=== PATIENT | male | born 1945 | race Caucasian/White ===

== ENCOUNTER 2020-07-08 12:53 | Emergency (ER) | payer BC, MEDICARE ==
[2020-07-08] MEDS ORDERED: Sodium Chloride 0.9% 10 ML Syringe FLUSH PRN (13:21)
--- NOTE | 2020-07-08 13:33 | EDM.PDOC ---
ED HPI GENERAL MEDICAL PROBLEM - General Chief Complaint: Back Pain or Injury Stated Complaint: KIDNEY PAIN SENT BY [facility] Time Seen by Provider: 07/08/20 13:10 Source of Information: Reports: Patient, RN Notes Reviewed History Limitations: Reports: No Limitations - History of Present Illness INITIAL COMMENTS - FREE TEXT/NARRATIVE: Patient is a 74-year-old male who presents to the ED for evaluation of his right lower back pain. Patient notes he is a type II diabetic, and has stage IV chronic kidney disease, he notes that his GFR is in the 30s. Review of labs sent over from [facility] do corroborate this along with a creatinine in the twos. His A1c on June 19, 2020 was 7.2, he was recently started on Ozempic 2 weeks ago. He notes that since yesterday, he has had some right lower back pain, seems to be exquisitely worse with movement, and dull at rest. He notes that nothing seems to make it much better he took some Tylenol and took some of the edge off, he states that his last dose of this was at around 11:30 AM. He has no trauma or recent injuries to the back. He has no urinary issues like hematuria, urgency dysuria. He notes that is very hard to get comfortable in any shape or fashion he did not get much sleep for the last 2 nights due to the pain. His area development consultant is Dr. Ventura, his PCP is Dr. Hans Salgado. He has no prior sick symptoms like fevers or chills, cough/nausea/vomiting/diarrhea. He notes that the pain does not radiate anywhere. Right Lower Back Pain Score (Numeric/FACES): 9 - Related Data Allergies Allergy/AdvReac Type Severity Reaction Status Date / Time No Known Allergies Allergy Verified 07/08/20 13:08 Home Meds: Home Meds Acetaminophen/HYDROcodone [[place] 325-5 MG] 1 tab PO Q6H PRN #12 tablet 07/08/20 [Rx] Allopurinol [Zyloprim] 300 mg PO DAILY 07/08/20 [History] Aspirin [Adult Low Dose Aspirin EC] 81 mg PO DAILY 07/08/20 [History] Cyanocobalamin (Vitamin B12) [Vitamin B12] 1,000 mcg PO DAILY 07/08/20 [History] Oxymetazoline HCl [12 Hour Nasal [place]] 1 spray [place] ASDIRECTED PRN 07/08/20 [History] Semaglutide [Ozempic] 1 injection SQ ASDIRECTED 07/08/20 [History] Simvastatin 40 mg PO DAILY 07/08/20 [History] Sodium Bicarbonate 325 mg PO DAILY 07/08/20 [History] Triamcinolone Acetonide [Kenalog 0.1% Crm] 1 applic TOP ASDIRECTED PRN 07/08/20 [History] diphenhydrAMINE [Benadryl] 25 mg PO ASDIRECTED PRN 07/08/20 [History] lisinopriL [Lisinopril] 20 mg PO DAILY 07/08/20 [History] metFORMIN [Glucophage] 500 mg PO BID 07/08/20 [History] Past Medical History HEENT History: Reports: Hard of Hearing, Other (See Below) Other HEENT History: hypertensive retinopathy R eye, retinal hemorrhage Cardiovascular History: Reports: CAD, High Cholesterol, Hypertension Respiratory History: Reports: Sleep Apnea, Other (See Below) Other Respiratory History: oxygen 2L with bipap at night Genitourinary History: Reports: Chronic Renal Insuffiency Musculoskeletal History: Reports: Osteoarthritis, Other (See Below) Other Musculoskeletal History: spinal stenosis Endocrine/Metabolic History: Reports: Diabetes, Type II, Hyperparathyroidism, Obesity/BMI 30+, Vitamin D Deficiency - Past Surgical History HEENT Surgical History: Reports: Adenoidectomy, Eye Surgery, Naso-Sinus Surgery, Tonsillectomy Cardiovascular Surgical History: Reports: Other (See Below) Other Cardiovascular Surgeries/Procedures: angiogram GI Surgical History: Reports: Appendectomy Musculoskeletal Surgical History: Reports: Carpal Tunnel, Knee Replacement, Other (See Below) Other Musculoskeletal Surgeries/Procedures:: X-spot procedure, hammer toe repair, foot surgery Social & Family History - Tobacco Use Tobacco Use Status *Q: Never Tobacco User Second Hand Smoke Exposure: No - Caffeine Use Caffeine Use: Reports: None - Recreational Drug Use Recreational Drug Use: No ED ROS GENERAL - Review of Systems Review Of Systems: Comprehensive ROS is negative, except as noted in HPI. ED EXAM,LOWER BACK PAIN/INJURY - Physical Exam Exam: See Below Exam Limited By: No Limitations General Appearance: Alert, WD/WN, No Apparent Distress Respiratory/Chest: No Respiratory Distress, Lungs Clear, Normal Breath Sounds, No Accessory Muscle Use, Chest Non-Tender Cardiovascular: Normal Peripheral Pulses, Regular Rate, Rhythm, No Edema GI/Abdominal: Normal Bowel Sounds, Soft, Non-Tender, No Distention, No Mass Extremities: Normal Inspection, Normal Capillary Refill Neurological: Alert, Normal Mood/Affect, Normal Dorsiflexion, Normal Plantar Flexion, No Motor/Sensory Deficits, Oriented x 3. No: Straight Leg Raise (L), Straight Leg Raise (R), Saddle Anesthesia Psychiatric: Normal Affect, Normal Mood Skin Exam: Warm, Dry, Intact, Normal Color, No Rash Course - Vital Signs Last Recorded V/S: Last Vital Signs Temp 97.5 F 07/08/20 13:03 Pulse 93 07/08/20 13:03 Resp 16 07/08/20 13:03 BP 140/91 H 07/08/20 13:03 Pulse Ox 99 07/08/20 13:03 - Orders/Labs/Meds Orders: Active Orders 24 hr Category Date Time Status Peripheral IV Care [RC] . DIRECTED Care 07/08/20 13:21 Ordered Sodium Chloride 0.9% [Saline Flush] Med 07/08/20 13:21 Ordered 10 ml FLUSH ASDIRECTED PRN Peripheral IV Insertion Adult [OM.PC] Routine Oth 07/08/20 13:21 Ordered Medication Orders Sodium Chloride (Saline Flush) 10 ml FLUSH ASDIRECTED PRN PRN Reason: Keep Vein Open Last Admin: 07/08/20 13:39 Dose: 10 ml Documented by: LUCIUS Labs: Laboratory Tests 07/08/20 07/08/20 07/08/20 Range/Units 13:05 13:05 13:35 WBC 8.56 (4.23-9.07) K/mm3 RBC 4.86 (4.63-6.08) M/mm3 Hgb 14.5 (13.7-17.5) gm/dl Hct 43.6 (40.1-51.0) % MCV 89.7 (79.0-92.2) fl MCH 29.8 (25.7-32.2) pg MCHC 33.3 (32.2-35.5) g/dl RDW Std Deviation 42.4 (35.1-43.9) fL Plt Count 195 (163-337) K/mm3 MPV 8.4 L (9.4-12.3) fl Neut % (Auto) 59.0 (34.0-67.9) % Lymph % (Auto) 29.7 (21.8-53.1) % Park % (Auto) 9.1 (5.3-12.2) % Eos % (Auto) 1.9 (0.8-7.0) Baso % (Auto) 0.1 (0.1-1.2) % Neut # (Auto) 5.05 (1.78-5.38) K/mm3 Lymph # (Auto) 2.54 (1.32-3.57) K/mm3 [place] # (Auto) 0.78 (0.30-0.82) K/mm3 Eos # (Auto) 0.16 (0.04-0.54) K/mm3 Baso # (Auto) 0.01 (0.01-0.08) K/mm3 Sodium 137 (136-145) mEq/L Potassium 4.3 (3.5-5.1) mEq/L Chloride 98 (98-107) mEq/L Carbon Dioxide 24 (21-32) mEq/L Anion Gap 19.3 H (5-15) BUN 37 H (7-18) mg/dL Creatinine 2.0 H (0.7-1.3) mg/dL Est Cr Clr Drug Dosing 29.84 mL/min Estimated GFR (MDRD) 33 (>60) mL/min BUN/Creatinine Ratio 18.5 H (14-18) Glucose 164 H (83-115) mg/dL Calcium 9.1 (8.5-10.1) mg/dL Total Bilirubin 0.5 (0.2-1.0) mg/dL AST 22 (15-37) U/L ALT 31 (16-63) U/L Alkaline Phosphatase 67 (46-116) U/L Total Protein 8.1 (6.4-8.2) g/dl Albumin 4.4 (3.4-5.0) g/dl Globulin 3.7 gm/dL Albumin/Globulin Ratio 1.2 (1-2) Urine Color Yellow (Yellow) Urine Appearance Clear (Clear) Urine pH 6.0 (5.0-8.0) Ur Specific [place] 1.015 (1.005-1.030) Urine Protein 1+ H (Negative) Urine Glucose (UA) Negative (Negative) Urine Ketones Negative (Negative) Urine Occult Blood Negative (Negative) Urine Nitrite Negative (Negative) Urine Bilirubin Negative (Negative) Urine Urobilinogen 0.2 (0.2-1.0) Ur Leukocyte Esterase Negative (Negative) Urine RBC 0-5 (0-5) /hpf Urine WBC 0-5 (0-5) /hpf Ur Squamous Epith Cells 0-5 (0-5) /hpf Urine Bacteria Few (FEW) /hpf Urine Mucus Rare (FEW) /hpf Meds: Medications Generic Name Dose Route Start Last Admin Trade Name Freq PRN Reason Stop Dose Admin Sodium Chloride 10 ml 07/08/20 13:21 07/08/20 13:39 Saline Flush FLUSH 10 ml ASDIRECTED PRN Administration Keep Vein Open - Re-Assessments/Exams Free Text/Narrative Re-Assessment/Exam: 07/08/20 13:32 Patient presents to the ED for the evaluation of his right lower back pain, he is unsure if it is related to his kidneys or musculoskeletal, due to his chronic kidney disease, we will get basic labs to include CBC, CMP, and a urinalysis along with an abdomen pelvis CT without contrast for evaluation of possible compression fracture versus other musculoskeletal etiology versus kidney etiology. 07/08/20 13:57 Labs are back, patient CBC is within normal limits, urinalysis is unremarkable, metabolic panel does demonstrate a creatinine at 2.0, GFR low at 33. These labs do not appear markedly out of bounds for his clinical status. Still awaiting CT results. 07/08/20 14:22 CT demonstrates no acute abnormalities. There are bilateral fat-containing inguinal hernias, the hernia on the right does contain a small portion of the bladder however he is not had any urinary issues to suspect any sort of incarceration. Patient will be sent home with a few tablets of pain medication for nighttime purposes and have him follow-up with Dr. Salgado regarding the start of his Ozempic recently. Departure - Departure Time of Disposition: 14:25 Disposition: Home, Self-Care 01 Condition: Good Clinical Impression: Low back pain Qualifiers: Chronicity: acute Back pain laterality: right Sciatica presence: without sciatica Qualified Code(s): M54.5 - Low back pain - Discharge Information *PRESCRIPTION DRUG MONITORING PROGRAM REVIEWED*: Yes *COPY OF PRESCRIPTION DRUG MONITORING REPORT IN PATIENT HELDER: No Instructions: Pain Medicine Instructions, [id number] Referrals: Hans Salgado Jr, MD [Primary Care Provider] - Forms: ED Department Discharge Additional Instructions: You were evaluated in the ER today for your low back pain. Laboratory evaluation was all within normal limits, there are no worrisome abnormalities, your creatinine and GFR were in the same range as they have been the last time they were evaluated on June 19, 2020 at [facility]. CT demonstrated no acute abnormalities regarding your kidneys. You do have 2 small bilateral fat-containing inguinal hernias, this may be something you want to discuss with your primary care provider, about getting fixed, or just watching to see if they cause any issues in the future. You were given a prescription for a strong pain medication, hydrocodone/acetaminophen 5/325 mg, please take 1 tab every 6 hours as needed for pain not relieved by Tylenol alone. Please note this medication does contain Tylenol in it, so do not take more than 4000 mg in a 24-hour time span. These medications can be addictive, so please take as few as possible to achieve adequate pain control. These meds can also be quite constipating, recommend that you increase your oral fluid intake and take a stool softener like MiraLAX while taking these medications. Do not drive while taking this medication. CT also did demonstrate quite a bit of stool throughout the colon, I recommend as above that you start taking a stool softener like MiraLAX, Dulcolax, Colace, to help provide further softening of your stools to promote bowel regularity. Recommend you follow-up with your primary care provider on Friday, regarding the recent start of your Ozempic, to see if there is an alternative medication that can be tried. Please return to the ER at any time if symptoms change or worsen. Sepsis Event Note (ED) - Evaluation Sepsis Screening Result: No Definite Risk - Focused Exam Vital Signs: Vital Signs Temp Pulse Resp BP Pulse Ox 07/08/20 13:03 97.5 F 93 16 140/91 H 99 - My Orders Last 24 Hours: My Active Orders 07/08/20 13:21 Peripheral IV Care [RC] . DIRECTED Sodium Chloride 0.9% [Saline Flush] 10 ml FLUSH ASDIRECTED PRN Peripheral IV Insertion Adult [OM.PC] Routine - Assessment/Plan Last 24 Hours: My Active Orders 07/08/20 13:21 Peripheral IV Care [RC] . DIRECTED Sodium Chloride 0.9% [Saline Flush] 10 ml FLUSH ASDIRECTED PRN Peripheral IV Insertion Adult [OM.PC] Routine
--- NOTE | 2020-07-08 14:19 | CT ---
CT abdomen and pelvis Technique: Multiple axial sections were obtained from above the dome of the diaphragm inferiorly through the pubic symphysis. Intravenous and oral contrast not utilized. Reconstructed coronal and sagittal images were obtained. Findings: Kidneys show no abnormal calcifications. No ureteral dilatation or ureteral stone is identified. No bladder calculi are noted. Bilateral inguinal hernias are noted. Small amount of bladder distends into the right-sided hernia. Visualized lung bases show nothing acute. Noncontrast appearance of the liver shows no focal parenchymal abnormality. Spleen appears normal. Small hiatal hernia is noted. Adrenal glands show no nodule. Pancreas shows no abnormality. Gallbladder contains no calcified gallstones. Abdominal aorta shows atherosclerotic calcification with no aneurysm. No retroperitoneal adenopathy or mesenteric abnormalities are seen. No pelvic mass or adenopathy is noted. Diverticulosis is noted within the sigmoid colon as well as descending colon with no findings of diverticulitis. Appendix is not visualized with certainty. Bone window settings were reviewed which show previous surgery at L4-5. Scattered degenerative change is noted. No acute osseous finding is appreciated. Impression: 1. Bilateral fat-containing inguinal hernias. Hernia on the right side contains a small amount of the right-sided bladder. 2. No renal calculi or ureteral dilatation is seen. 3. Other findings as noted above which are nonacute. Diagnostic code #2
== END 2020-07-08 14:50 | disposition home or self-care (01) ==
LOC: JD.ED 12:53
DX: M54.5 Low back pain (principal); I25.10 Atherosclerotic heart disease of native coronary artery without angina pectoris; E78.00 Pure hypercholesterolemia, unspecified; I12.9 Hypertensive chronic kidney disease with stage 1 through stage 4 chronic kidney disease, or unspecified chronic kidney disease; N18.9 Chronic kidney disease, unspecified; M19.90 Unspecified osteoarthritis, unspecified site; E11.22 Type 2 diabetes mellitus with diabetic chronic kidney disease; E66.9 Obesity, unspecified; Z79.84 Long term (current) use of oral hypoglycemic drugs; Z79.899 Other long term (current) drug therapy; Z68.36 Body mass index [BMI] 36.0-36.9, adult; Z79.82 Long term (current) use of aspirin
CPT/HCPCS: 36415; 74176; 74176-26; 80053; 81001; 85025; 99284; 99284-25